=== PATIENT | female | born 1990 | race Caucasian/White ===

== ENCOUNTER 2020-12-12 15:13 | Emergency (ER) | payer OTHER ==
[~2020-12-12] VITALS: Ht 172.7 cm; Wt 70.9 kg
[2020-12-12] MEDS ORDERED: FLEXERIL5 M1 PO (17:39)
[2020-12-15 01:02] VITALS: BP 133/84
== END 2020-12-12 17:45 | disposition home or self-care (01) | DRG 552 ==
LOC: ED 15:13
DX: S16.1XXA Strain of muscle, fascia and tendon at neck level, initial encounter (principal); G62.9 Polyneuropathy, unspecified; E05.00 Thyrotoxicosis with diffuse goiter without thyrotoxic crisis or storm; I73.00 Raynaud's syndrome without gangrene; V49.40XA Driver injured in collision with unspecified motor vehicles in traffic accident, initial encounter